=== PATIENT | female | born 1960 | race African-American/Black ===

== ENCOUNTER → 2017-01-24 | Day surgery (SDC) | payer BC ==
[2017-01-24 11:26] LABS: ALBUMIN 3.9 g/dl (3.4-5.0); ANION GAP 4 (8-16); BILIRUBIN,TOTAL 0.4 mg/dL (0.2-1.0); CALCIUM 9.4 mg/dL (8.5-10.1); CHOLESTEROL 204 mg/dL (50-200); CO2 31 mmol/L (21-32); CREATININE 0.8 mg/dL (0.55-1.02); GLUCOSE,RANDOM 91 mg/dL (74-106); LDL CHOLESTEROL (ONLY SJRH) 124 mg/dL (5-100); SGOT/AST 14 U/L (15-37); SGPT/ALT 26 U/L (12-78); TOT PROT 7.5 g/dl (6.4-8.2)
[2017-01-24 11:37] LABS: ALK PHOS 61 U/L (45-117); THYROID STIMULATING HORMONE 1.55 uIU/ml (0.358-3.74)
--- NOTE | 2017-01-25 12:26 | PATH ---
Cytology Non-Gynecological Report Patient Name: DAILY STANTON [facility]. Rec. #: [id number] /Age/Gender: 1960 (Age: 56) / F Account: [id number] Location: RADIOLOGY Taken: 01/24/2017 Received: 01/24/2017 Reported: 01/25/2017 Physicians: Vince Sanchez M.D. Specimen(s) Received FNA RIGHT THYROID Clinical History Right thyroid 4.79 x 2.81 x 3.24 Final Diagnosis THYROID, RIGHT, FINE NEEDLE ASPIRATION: SATISFACTORY FOR EVALUATION B[place] CATEGORY II: BENIGN (NO MALIGNANT CELLS IDENTIFIED) CYTOLOGIC FINDINGS ARE CONSISTENT WITH A BENIGN FOLLICULAR NODULE (ADENOMATOID NODULE) BENIGN FOLLICULAR CELLS, MACROPHAGES AND COLLOID PRESENT. Comment: Recommend correlation with clinical findings and follow up as clinically indicated. Electronically Signed Moreno Bonds M.D. Gross Description Received are eight direct smears, four of which are air-dried and Diff-Quik stained, and four of which are alcohol fixed and Pap stained. Also received is 20 ml of bloody formalin from which one cellblock is prepared.
[2017-01-26 00:07] LABS: CREATININE RANDOM URINE 396.7 mg/dL (Not Estab.); MICRO ALBUMIN RANDOM UR 14.8 ug/mL (Not Estab.)
== END | disposition home or self-care (01) ==
LOC: JRADIR 09:31
PROVIDERS: ATTEND Internal Medicine Endocrinology, Diabetes & Metabolism
PROC: 0G9H3ZX Drainage of Right Thyroid Gland Lobe, Percutaneous Approach, Diagnostic (ICD-10-PCS; principal; 2017-01-24)
PROC: BG44ZZZ Ultrasonography of Thyroid Gland (ICD-10-PCS; 2017-01-24)
DX: E04.1 Nontoxic single thyroid nodule (principal)
CPT/HCPCS: 36415; 76942; 80053; 80061; 82043; 82570; 83036; 83721; 84443; 88173; 88305-TC

== ENCOUNTER 2017-04-25 17:34 | Emergency (ER) | payer BC, OTHER ==
[2017-04-25 17:41] VITALS: BP 128/65; PULSE 100; TEMP 98.1; BMI 31.9
[2017-04-25] MEDS ORDERED: IBUPROFEN 400 MG TABLET (FP) PO ONE ×2 (18:15→18:17)
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
== END 2017-04-25 18:35 | disposition home or self-care (01) ==
LOC: JERFT 17:34
DX: M79.602 Pain in left arm (principal); I10 Essential (primary) hypertension; K21.9 Gastro-esophageal reflux disease without esophagitis; V03.10XA Pedestrian on foot injured in collision with car, pick-up truck or van in traffic accident, initial encounter; Y92.414 Local residential or business street as the place of occurrence of the external cause; Y93.89 Activity, other specified
CPT/HCPCS: 99281-25

== ENCOUNTER 2017-09-27 09:37 | Day surgery (SDC) | payer BC ==
[2017-09-27 10:36] VITALS: BMI 31.9
[2017-09-27 12:25] VITALS: TEMP 97.4
[2017-09-27 12:46] VITALS: BP 143/96; PULSE 66
--- NOTE | 2017-10-01 16:40 | PATH ---
Surgical Pathology Report Patient Name: DAILY STANTON [facility]. Rec. #: [id number] /Age/Gender: 1960 (Age: 57) / F Account: [id number] Location: ASU-ENDOSCOPY Taken: 09/27/2017 Received: 09/27/2017 Reported: 10/01/2017 Physicians: Gabriela Angulo M.D. Specimen(s) Received A: BX POLYPS TRANSVERSE COLON B: BX POLYPS RIGHT COLON Clinical History History of colon polyp Diverticulosis, polyps Final Diagnosis A. TRANSVERSE COLON, POLYP, BIOPSY: TUBULAR ADENOMA(S). B. COLON, RIGHT, POLYPS, BIOPSY: TUBULAR ADENOMA(S). Electronically Signed Raquel Dawkins M.D. Gross Description A. Received in formalin, labeled "transverse colon polyp" are 6 gonzalez, irregular portions of soft tissue ranging from 0.2-0.4 cm. in greatest dimension. The specimens are submitted in toto in one cassette. B. Received in formalin, labeled "polyps right colon" are 6 gonzalez, irregular portions of soft tissue ranging from 0.1-0.5 cm. in greatest dimension. The specimens are submitted in toto in one cassette. 09/27/201709/27/2017
== END 2017-09-27 13:50 | disposition home or self-care (01) ==
LOC: JASU-ENDO 09:37
PROVIDERS: ATTEND Internal Medicine Gastroenterology
PROC: 0DBL8ZX Excision of Transverse Colon, Via Natural or Artificial Opening Endoscopic, Diagnostic (ICD-10-PCS; 2017-09-27)
PROC: 0DBN8ZX Excision of Sigmoid Colon, Via Natural or Artificial Opening Endoscopic, Diagnostic (ICD-10-PCS; 2017-09-27)
PROC: 0DBK8ZX Excision of Ascending Colon, Via Natural or Artificial Opening Endoscopic, Diagnostic (ICD-10-PCS; principal; 2017-09-27 10:30)
DX: Z86.010 Personal history of colon polyps (principal); D12.2 Benign neoplasm of ascending colon; D12.5 Benign neoplasm of sigmoid colon; D12.3 Benign neoplasm of transverse colon; K57.30 Diverticulosis of large intestine without perforation or abscess without bleeding
CPT/HCPCS: 88305-TC

== ENCOUNTER 2018-07-16 16:19 | Emergency (ER) | payer OTHER, BC ==
--- NOTE | 2018-07-16 16:25 | PDOC ---
Rapid Medical Evaluation Time Seen by Provider: 07/16/18 16:23 Medical Evaluation: Allergies Allergy/AdvReac Type Severity Reaction Status Date / Time ofloxacin [From Floxin] Allergy Severe TACHYCARDIA,CHEST Verified 04/25/17 17:41 PAIN epinephrine Allergy Unknown Verified 04/25/17 17:41 [From Epi E-Z Pen] iodine Allergy Verified 04/25/17 17:41 Quinolones Allergy Verified 04/25/17 17:41 GREEN TEA FLORES Allergy Severe Difficulty Uncoded 04/25/17 17:41 Breathing MOBIC Allergy Severe Difficulty Uncoded 04/25/17 17:41 Breathing NUTS Allergy Severe STOMACH Uncoded 04/25/17 17:41 CRAMPS,VOICE CHANGES cherries Allergy Intermediate Uncoded 04/25/17 17:41 DYE Allergy Intermediate PALPITATION Uncoded 04/25/17 17:41 S SEVERAL FOODS Allergy Intermediate Rash Uncoded 04/25/17 17:41 ARUGALA Allergy Mild Rash Uncoded 04/25/17 17:41 07/16/18 16:23 pt c/o: walked into a desk at work today, now with pain pt on brief exam: rt 5th toe with tenderness, pt ordered for: rt toe xray Pt to proceed to the ED Discharge Disposition - Diagnosis Toe pain, right - Referrals - Patient Instructions - Post Discharge Activity
[2018-07-16 16:27] VITALS: BP 162/102; PULSE 82; TEMP 97; BMI 31.7
--- NOTE | 2018-07-16 16:47 | PDOC ---
History of Present Illness - General Chief Complaint: Injury Stated Complaint: RT FOOT INJURY Time Seen by Provider: 07/16/18 16:23 - History of Present Illness Initial Comments: 58-year-old female with a past medical history significant for hypertension presents for evaluation of right fifth toe pain after banging it into a desk at work today. 07/16/18 16:44 Past History - Past Medical History Allergies/Adverse Reactions: Allergies Allergy/AdvReac Type Severity Reaction Status Date / Time ofloxacin [From Floxin] Allergy Severe TACHYCARDIA,CHEST Verified 07/16/18 16:27 PAIN epinephrine Allergy Unknown Verified 07/16/18 16:27 [From Epi E-Z Pen] iodine Allergy Verified 07/16/18 16:27 Quinolones Allergy Verified 07/16/18 16:27 GREEN TEA FLORES Allergy Severe Difficulty Uncoded 07/16/18 16:27 Breathing MOBIC Allergy Severe Difficulty Uncoded 07/16/18 16:27 Breathing NUTS Allergy Severe STOMACH Uncoded 07/16/18 16:27 CRAMPS,VOICE CHANGES cherries Allergy Intermediate Uncoded 07/16/18 16:27 DYE Allergy Intermediate PALPITATION Uncoded 07/16/18 16:27 S SEVERAL FOODS Allergy Intermediate Rash Uncoded 07/16/18 16:27 ARUGALA Allergy Mild Rash Uncoded 07/16/18 16:27 Home Medications: Ambulatory Orders Losartan Potassium 100 mg PO DAILY 07/16/18 Anemia: No Asthma: No Cancer: No Cardiac Disorders: Yes (MVP) CVA: No COPD: No CHF: No Dementia: No Diabetes: No GI Disorders: Yes (ACID REFLUX) Disorders: No HTN: Yes Hypercholesterolemia: No Liver Disease: No Seizures: No Thyroid Disease: Yes (THYROID GOITER) - Surgical History Abdominal Surgery: Yes (EXPLORATORY LAP) Appendectomy: No Cardiac Surgery: No Cholecystectomy: Yes Lung Surgery: No Neurologic Surgery: No Orthopedic Surgery: Yes (RIGHT KNEE ARTHROSCOPY) - Suicide/Smoking/Psychosocial Hx Smoking Status: No Smoking History: Never smoked Have you smoked in the past 12 months: No Number of Cigarettes Smoked Daily: 0 Hx Alcohol Use: No Drug/Substance Use Hx: No Substance Use Type: None Hx Substance Use Treatment: No Review of Systems - Review of Systems Musculoskeletal: Yes: See HPI All Other Systems: Reviewed and Negative *Physical Exam - Vital Signs Last Vital Signs Temp Pulse Resp BP Pulse Ox 97 F L 82 18 162/102 100 07/16/18 16:21 07/16/18 16:21 07/16/18 16:21 07/16/18 16:21 07/16/18 16:21 - Physical Exam Comments: Right fifth toe is swollen mildly ecchymotic tender at the MTP joint and fifth proximal phalanx. There is no appreciable malrotation with gentle passive motion or gross sensorimotor deficits 07/16/18 16:45 Medical Decision Making - Medical Decision Making Is a minimally displaced fracture at the fifth proximal phalanx of the right foot. 07/16/18 16:42 07/16/18 16:45 , Nimisha tape follow-up with orthopedics weight-bear as tolerated with use of a hard sole shoe *DC/Admit/Observation/Transfer Diagnosis at time of Disposition: Toe pain, right, Toe fracture, right - Discharge Dispostion Disposition: HOME Condition at time of disposition: Stable Decision to Admit order: No - Referrals Referrals: Ramon Nicolas MD [Primary Care Provider] - Roverto Rucker MD [Staff Physician] - - Patient Instructions Printed Discharge Instructions: Toe Fracture, DI for Toe Fracture Additional Instructions: Return to the emergency room should his symptoms worsen or go unresolved. Please follow-up with orthopedics in 2-3 days for further evaluation and treatment options. He may weight-bear as tolerated with use of a hard sole shoe and keep the toe nimisha taped for extra support. May take Tylenol for pain as directed. - Post Discharge Activity
== END 2018-07-16 16:47 | disposition home or self-care (01) ==
LOC: JERFT 16:19
DX: S92.511A Displaced fracture of proximal phalanx of right lesser toe(s), initial encounter for closed fracture (principal); W22.03XA Walked into furniture, initial encounter; Y93.89 Activity, other specified; Y92.215 Trade school as the place of occurrence of the external cause; Y99.0 Civilian activity done for income or pay; I10 Essential (primary) hypertension; K21.9 Gastro-esophageal reflux disease without esophagitis
CPT/HCPCS: 73660-TC-FY; 99281-25

== ENCOUNTER 2021-07-18 10:41 | Inpatient (IN) | payer BC ==
[2021-07-18 12:41] LABS: HEMATOCRIT 39.8 % (32.4-45.2); HEMOGLOBIN 13.7 GM/dL (10.7-15.3); MCH 29.7 pg (25.7-33.7); MCHC 34.5 g/dl (32.0-36.0); MEAN CELL VOLUME 86.2 fl (80-96); MEAN PLT VOLUME 8.3 fl (7.5-11.1); PLATELET COUNT 359 10^3/uL (134-434); RBC 4.62 M/mm3 (3.60-5.2); RDW 13.4 % (11.6-15.6); WHITE BLOOD COUNT 25.6 K/mm3 (4.0-10.0)
[2021-07-18] MEDS ORDERED: ENOXAPARIN NA (PORCINE) 60 MG/0.6 ML DISP.SYRIN SQ SCH (12:45)
[2021-07-18 12:48] LABS: INR 1.29 (0.83-1.09); PROTHROMBIN TIME (PATIENT) 15.5 SEC (9.7-13.0)
[2021-07-18 12:50] LABS: ACTIVATED PTT 37.2 SECONDS (25.2-36.5)
[2021-07-18] MEDS ORDERED: ENOXAPARIN NA (PORCINE) 80 MG/0.8 ML DISP.SYRIN SQ ONE (12:59)
[2021-07-18 13:04] LABS: CHLORIDE 100 mmol/L (98-107); SODIUM 137 mmol/L (136-145)
[2021-07-18 13:06] LABS: ALBUMIN 3.1 g/dl (3.4-5.0); CALCIUM 9.1 mg/dL (8.5-10.1)
[2021-07-18 13:07] LABS: ANION GAP 13 MMOL/L (8-16); BLOOD UREA NITROGEN 28.3 mg/dL (7-18); CO2 24 mmol/L (21-32); GLUCOSE,RANDOM 118 mg/dL (74-106)
[2021-07-18 13:10] LABS: CREATININE 2.4 mg/dL (0.55-1.3); SGOT/AST 59 U/L (15-37); SGPT/ALT 65 U/L (13-61)
[2021-07-18 13:11] LABS: BILIRUBIN,TOTAL 0.9 mg/dL (0.2-1); TOT PROT 8.8 g/dl (6.4-8.2)
[2021-07-18 13:13] LABS: ALK PHOS 91 U/L (45-117); ANISOCYTOSIS 2+; MACROCYTOSIS 0; PLATELET ESTIMATE NORMAL
[2021-07-18] MEDS ORDERED: CEFTRIAXONE 1 GM in DEXTROSE 5%-WATER - 50 ML IVPB ONE (14:26)
[2021-07-18] MEDS ORDERED: VANCOMYCIN 1 GM in D5W (PRE-DOCKED) 1,000 MG/250 ML IVPB ONE (15:00)
[2021-07-18] MEDS ORDERED: SODIUM CHLORIDE 1,000 ML IV SCH (15:15)
[2021-07-18] MEDS ORDERED: MELATONIN 5 MG TABLETS PO PRN (15:54)
[2021-07-18] MEDS ORDERED: CEFTRIAXONE 1 GM/50 ML BAG ONE (16:25)
[2021-07-18] MEDS ORDERED: VANCOMYCIN 1 GRAM (PRE-DOCKED) 1,000 MG/250 ML BAG IVPB ONE (16:25)
[2021-07-18] MEDS: HEPARIN - 25,000 UNIT in SODIUM CHLORIDE 495 ML IV SCH (17:45)
[2021-07-18 20:26] LABS: LDH 491 U/L (84-246)
[2021-07-18 23:50] VITALS: BMI 29.0
[2021-07-19 07:11] LABS: BASO % 0.5 % (0-2.0); EOS % 0.3 % (0-4.5); HEMATOCRIT 34.2 % (32.4-45.2); HEMOGLOBIN 11.9 GM/dL (10.7-15.3); MCH 29.8 pg (25.7-33.7); MCHC 34.7 g/dl (32.0-36.0); MEAN CELL VOLUME 85.8 fl (80-96); MEAN PLT VOLUME 8.6 fl (7.5-11.1); MONO % 7.6 % (3.8-10.2); NEUT % 81.6 % (42.8-82.8); PLATELET COUNT 348 10^3/uL (134-434); RBC 3.98 M/mm3 (3.60-5.2); RDW 13.5 % (11.6-15.6); WHITE BLOOD COUNT 20.1 K/mm3 (4.0-10.0)
[2021-07-19 07:39] LABS: BLOOD UREA NITROGEN 36.6 mg/dL (7-18); CALCIUM 8.6 mg/dL (8.5-10.1); MAGNESIUM 2.2 mg/dL (1.8-2.4)
[2021-07-19 07:42] LABS: PHOSPHOROUS 4.2 mg/dL (2.5-4.9)
[2021-07-19 07:43] LABS: BILIRUBIN,TOTAL 0.6 mg/dL (0.2-1); CREATININE 1.9 mg/dL (0.55-1.3)
[2021-07-19 07:45] LABS: TOT PROT 7.4 g/dl (6.4-8.2)
[2021-07-19 08:46] LABS: ALBUMIN 2.5 g/dl (3.4-5.0)
[2021-07-19 09:14] LABS: ANISOCYTOSIS 0; MACROCYTOSIS 0; PLATELET ESTIMATE NORMAL
[2021-07-19 11:39] LABS: EPI CELLS >36 /uL (0-25.1); HYALINE CASTS 10 /uL (0-3.1); URINE APPEARANCE TURBID; URINE BACTERIA 104 /uL (0-1359); URINE BILIRUBIN NEGATIVE (NEGATIVE); URINE COLOR YELLOW; URINE GLUCOSE (UA) NEGATIVE (NEGATIVE); URINE KETONE TRACE (NEGATIVE); URINE LEUK ESTERASE NEGATIVE (NEGATIVE); URINE NITRITE NEGATIVE (NEGATIVE); URINE PROTEIN 1+ (NEGATIVE)
[2021-07-19 11:40] LABS: URINE RBC 19.1 /uL (0-23.9)
[2021-07-19 11:41] LABS: URINE WBC 82.8 /uL (0-25.8)
[2021-07-19] MEDS ORDERED: LACTATED RINGERS SOLUTION 1,000 ML/1,000 ML INFUS.BAG IV SCH (12:30)
[2021-07-19] MEDS: DEXAMETHASONE SOD PHOSPHATE 4 MG/1 ML VIAL IVPUSH SCH (14:07)
[2021-07-19] MEDS: HEPARIN - 25,000 UNIT in SODIUM CHLORIDE 495 ML IV SCH (14:54)
[2021-07-19] MEDS: BUDESONIDE/FORMETEROL FUMARATE 160/4.5 mcg INHALER IH SCH ×2 (18:02→21:50)
[2021-07-19] MEDS ORDERED: FAMOTIDINE 20 MG TABLET PO SCH (22:00)
[2021-07-20 07:45] LABS: BASO % 0.3 % (0-2.0); HEMATOCRIT 33.3 % (32.4-45.2); HEMOGLOBIN 11.2 GM/dL (10.7-15.3); LYMPH % 4.9 % (8-40); MCH 29.5 pg (25.7-33.7); MCHC 33.7 g/dl (32.0-36.0); MEAN CELL VOLUME 87.6 fl (80-96); MEAN PLT VOLUME 7.8 fl (7.5-11.1); MONO % 4.9 % (3.8-10.2); NEUT % 89.9 % (42.8-82.8); PLATELET COUNT 380 10^3/uL (134-434); RBC 3.81 M/mm3 (3.60-5.2); RDW 13.2 % (11.6-15.6)
[2021-07-20 08:06] LABS: ALBUMIN 2.6 g/dl (3.4-5.0); CALCIUM 8.9 mg/dL (8.5-10.1)
[2021-07-20 08:07] LABS: BLOOD UREA NITROGEN 23.8 mg/dL (7-18); MAGNESIUM 2.5 mg/dL (1.8-2.4)
[2021-07-20 08:09] LABS: CREATININE 0.9 mg/dL (0.55-1.3)
[2021-07-20 08:10] LABS: BILIRUBIN,TOTAL 0.6 mg/dL (0.2-1); TOT PROT 7.5 g/dl (6.4-8.2)
[2021-07-20] MEDS: FAMOTIDINE 20 MG TABLET PO SCH (09:22)
[2021-07-20] MEDS: DEXAMETHASONE SOD PHOSPHATE 4 MG/1 ML VIAL IVPUSH SCH (09:22)
[2021-07-20] MEDS: BUDESONIDE/FORMETEROL FUMARATE 160/4.5 mcg INHALER IH SCH ×2 (09:36→21:53)
[2021-07-20] MEDS: APIXABAN 2.5 MG TABLET PO SCH ×2 (12:27→21:53)
[2021-07-21 07:13] LABS: HEMATOCRIT 30.8 % (32.4-45.2); HEMOGLOBIN 10.3 GM/dL (10.7-15.3); MCH 28.7 pg (25.7-33.7); MCHC 33.5 g/dl (32.0-36.0); MEAN CELL VOLUME 85.5 fl (80-96); MEAN PLT VOLUME 7.9 fl (7.5-11.1); PLATELET COUNT 348 10^3/uL (134-434); RDW 13.3 % (11.6-15.6); WHITE BLOOD COUNT 19.9 K/mm3 (4.0-10.0)
[2021-07-21 07:21] LABS: CHLORIDE 108 mmol/L (98-107); SODIUM 140 mmol/L (136-145)
[2021-07-21 07:24] LABS: ALBUMIN 2.4 g/dl (3.4-5.0); CALCIUM 8.7 mg/dL (8.5-10.1)
[2021-07-21 07:25] LABS: ANION GAP 6 MMOL/L (8-16); BLOOD UREA NITROGEN 18.6 mg/dL (7-18); CO2 26 mmol/L (21-32); GLUCOSE,RANDOM 113 mg/dL (74-106); MAGNESIUM 2.1 mg/dL (1.8-2.4)
[2021-07-21 07:27] LABS: SGPT/ALT 42 U/L (13-61)
[2021-07-21 07:28] LABS: CREATININE 0.7 mg/dL (0.55-1.3); SGOT/AST 29 U/L (15-37)
[2021-07-21 07:29] LABS: BILIRUBIN,TOTAL 0.6 mg/dL (0.2-1)
[2021-07-21 07:30] LABS: ALK PHOS 67 U/L (45-117)
[2021-07-21 07:32] LABS: LDH 369 U/L (84-246)
[2021-07-21] MEDS ORDERED: PT OWN MED DRAWER 7, Y5N ONE (09:35)
[2021-07-21 09:39] LABS: ANISOCYTOSIS 1+; MACROCYTOSIS 0; PLATELET ESTIMATE NORMAL
[2021-07-21] MEDS: APIXABAN 2.5 MG TABLET PO SCH ×2 (10:13→22:27)
[2021-07-21] MEDS: DEXAMETHASONE SOD PHOSPHATE 4 MG/1 ML VIAL IVPUSH SCH (10:13)
[2021-07-21] MEDS: FAMOTIDINE 20 MG TABLET PO SCH (10:14)
[2021-07-21] MEDS: BUDESONIDE/FORMETEROL FUMARATE 160/4.5 mcg INHALER IH SCH ×2 (10:14→22:27)
[2021-07-21] MEDS ORDERED: LOSARTAN POTASSIUM 50 MG TABLET PO ONE (15:00)
[2021-07-21] MEDS ORDERED: NEBIVOLOL 5 MG TABLET (FP) PO ONE (15:15)
[2021-07-22 08:01] LABS: HEMATOCRIT 32.1 % (32.4-45.2); HEMOGLOBIN 10.9 GM/dL (10.7-15.3); MCH 29.5 pg (25.7-33.7); MCHC 33.8 g/dl (32.0-36.0); MEAN CELL VOLUME 87.1 fl (80-96); MEAN PLT VOLUME 8.1 fl (7.5-11.1); PLATELET COUNT 393 10^3/uL (134-434); RBC 3.69 M/mm3 (3.60-5.2); RDW 13.4 % (11.6-15.6); WHITE BLOOD COUNT 16.8 K/mm3 (4.0-10.0)
[2021-07-22 08:12] LABS: CALCIUM 8.9 mg/dL (8.5-10.1)
[2021-07-22 08:13] LABS: ALBUMIN 2.5 g/dl (3.4-5.0); BLOOD UREA NITROGEN 18.5 mg/dL (7-18); MAGNESIUM 1.8 mg/dL (1.8-2.4)
[2021-07-22 08:16] LABS: CREATININE 0.8 mg/dL (0.55-1.3)
[2021-07-22 08:17] LABS: BILIRUBIN,TOTAL 0.4 mg/dL (0.2-1)
[2021-07-22 08:18] LABS: TOT PROT 7.1 g/dl (6.4-8.2)
[2021-07-22] MEDS ORDERED: MAGNESIUM OXIDE 400 MG TABLET (FP) PO ONE (08:48)
[2021-07-22 08:51] LABS: ANISOCYTOSIS 1+; MACROCYTOSIS 0; PLATELET ESTIMATE NORMAL
[2021-07-22] MEDS ORDERED: NEBIVOLOL 5 MG TABLET (FP) PO SCH (10:00)
[2021-07-22] MEDS: FAMOTIDINE 20 MG TABLET PO SCH (11:20)
[2021-07-22] MEDS: LOSARTAN POTASSIUM 50 MG TABLET PO SCH (11:20)
[2021-07-22] MEDS: NEBIVOLOL 5 MG TABLET (FP) PO SCH (11:20)
[2021-07-22] MEDS: APIXABAN 2.5 MG TABLET PO SCH ×2 (11:21→21:00)
[2021-07-22] MEDS: DEXAMETHASONE SOD PHOSPHATE 4 MG/1 ML VIAL IVPUSH SCH (11:21)
[2021-07-22] MEDS: BUDESONIDE/FORMETEROL FUMARATE 160/4.5 mcg INHALER IH SCH ×2 (11:21→21:00)
[2021-07-23 07:43] LABS: BASO % 0.2 % (0-2.0); EOS % 0.1 % (0-4.5); HEMATOCRIT 30.8 % (32.4-45.2); HEMOGLOBIN 10.5 GM/dL (10.7-15.3); LYMPH % 8.6 % (8-40); MCH 29.7 pg (25.7-33.7); MCHC 34.2 g/dl (32.0-36.0); MEAN CELL VOLUME 86.9 fl (80-96); MEAN PLT VOLUME 8.1 fl (7.5-11.1); MONO % 9.1 % (3.8-10.2); PLATELET COUNT 358 10^3/uL (134-434); RBC 3.55 M/mm3 (3.60-5.2); RDW 13.5 % (11.6-15.6); WHITE BLOOD COUNT 16.1 K/mm3 (4.0-10.0)
[2021-07-23 07:53] LABS: ALBUMIN 2.4 g/dl (3.4-5.0); BLOOD UREA NITROGEN 19.6 mg/dL (7-18); CALCIUM 8.8 mg/dL (8.5-10.1)
[2021-07-23 07:54] LABS: MAGNESIUM 2.1 mg/dL (1.8-2.4)
[2021-07-23 07:55] LABS: TOT PROT 6.6 g/dl (6.4-8.2)
[2021-07-23 07:56] LABS: CREATININE 0.7 mg/dL (0.55-1.3)
[2021-07-23] MEDS: DEXAMETHASONE SOD PHOSPHATE 4 MG/1 ML VIAL IVPUSH SCH (09:48)
[2021-07-23] MEDS: APIXABAN 2.5 MG TABLET PO SCH ×2 (09:49→21:48)
[2021-07-23] MEDS: LOSARTAN POTASSIUM 50 MG TABLET PO SCH (09:49)
[2021-07-23] MEDS: FAMOTIDINE 20 MG TABLET PO SCH (09:49)
[2021-07-23] MEDS: NEBIVOLOL 5 MG TABLET (FP) PO SCH (09:49)
[2021-07-23] MEDS: BUDESONIDE/FORMETEROL FUMARATE 160/4.5 mcg INHALER IH SCH ×2 (09:49→21:48)
[2021-07-24 08:24] LABS: HEMATOCRIT 31.2 % (32.4-45.2); HEMOGLOBIN 10.6 GM/dL (10.7-15.3); MCH 29.3 pg (25.7-33.7); MEAN PLT VOLUME 7.8 fl (7.5-11.1); PLATELET COUNT 352 10^3/uL (134-434); RBC 3.62 M/mm3 (3.60-5.2); RDW 13.5 % (11.6-15.6); WHITE BLOOD COUNT 17.4 K/mm3 (4.0-10.0)
[2021-07-24 08:37] LABS: ALBUMIN 2.4 g/dl (3.4-5.0); BLOOD UREA NITROGEN 19.6 mg/dL (7-18); CALCIUM 8.7 mg/dL (8.5-10.1)
[2021-07-24 08:40] LABS: CREATININE 0.7 mg/dL (0.55-1.3)
[2021-07-24 08:42] LABS: TOT PROT 6.5 g/dl (6.4-8.2)
[2021-07-24 08:44] LABS: BILIRUBIN,TOTAL 0.6 mg/dL (0.2-1)
[2021-07-24 09:18] VITALS: TEMP 98.8
[2021-07-24] MEDS: LOSARTAN POTASSIUM 50 MG TABLET PO SCH (09:19)
[2021-07-24] MEDS: APIXABAN 2.5 MG TABLET PO SCH (09:19)
[2021-07-24] MEDS: BUDESONIDE/FORMETEROL FUMARATE 160/4.5 mcg INHALER IH SCH (09:19)
[2021-07-24] MEDS: NEBIVOLOL 5 MG TABLET (FP) PO SCH (09:19)
[2021-07-24] MEDS: FAMOTIDINE 20 MG TABLET PO SCH (09:19)
[2021-07-24] MEDS ORDERED: DEXAMETHASONE 4 MG TABLET (FP) PO SCH (10:00)
[2021-07-24 10:15] LABS: ANISOCYTOSIS 1+; MACROCYTOSIS 0; PLATELET ESTIMATE NORMAL; TEAR DROP CELLS 1+
[2021-07-24 14:03] VITALS: BP 134/93
[2021-07-24 14:26] VITALS: PULSE 82
[2021-07-27] MEDS ORDERED: APIXABAN 2.5 MG TABLET PO SCH (10:00)
[2021-07-30] MEDS ORDERED: APIXABAN 5 MG TABLET PO SCH (10:00)
== END 2021-07-24 17:17 | disposition home health service (06) | DRG 300 ==
LOC: JER 10:41 → JERBED 12:13 → J4S 22:42
PROVIDERS: ADMIT Internal Medicine; ATTEND Nurse Practitioner Acute Care
DX: I82.4Z1 Acute embolism and thrombosis of unspecified deep veins of right distal lower extremity (principal); N17.9 Acute kidney failure, unspecified; R74.01 Elevation of levels of liver transaminase levels; D72.829 Elevated white blood cell count, unspecified; R00.0 Tachycardia, unspecified; R09.02 Hypoxemia; I10 Essential (primary) hypertension; K21.9 Gastro-esophageal reflux disease without esophagitis; E04.1 Nontoxic single thyroid nodule
CPT/HCPCS: 36415; 71046-TC-FY; 71250-TC; 73523-TC-FY; 73562-TC-RT-FY; 73610-TC-RT-FY; 76775-TC; 80053; 80061; 81003; 82550; 82728; 83036; 83615; 83735; 84100; 84484; 85025; 85379; 85610; 85730; 86140; 86769; 87040; 87086; 93005; 93010; 93971-TC; 94761; 97116-GP; 97163-GP; 99285-25; C9803; J1644; U0003; U0005

== ENCOUNTER 2021-09-08 16:18 | Emergency (ER) | payer BC, OTHER ==
[2021-09-08 16:36] VITALS: BP 169/100; PULSE 67; TEMP 97.8; BMI 30.9
[2021-09-08] MEDS ORDERED: APIXABAN 2.5 MG TABLET PO ONE (17:32)
== END 2021-09-08 18:16 | disposition home or self-care (01) ==
LOC: JERFT 16:18
DX: I82.491 Acute embolism and thrombosis of other specified deep vein of right lower extremity (principal)
CPT/HCPCS: 99283-25

== ENCOUNTER 2022-10-31 04:15 | Day surgery (SDC) | payer BC ==
[2022-10-29 14:32] VITALS: BMI 32.1
[~2022-10-31 04:15] MED LIST: ACETAMINOPHEN 325 MG TABLET (FP) PO PRN; BSS (NA/CA/MG/K) BALANCED SALT SOLUTION OPHTH SOLN 15 ML BOTTLE OD ONE; CHONDROITIN SU A/HYALUR SOD 1 KIT IO ONE; EPINEPHrine/PF 1 MG/1 ML (1:1,000) AMPULE SQ ONE; LIDOCAINE 1% P/F 10 MG/ML VIAL PNB ONE; POVIDONE-IODINE 5% OPHTHALMIC PREP 30 ML SOLUTION OD ONE; TETRACAINE 0.5% OPHTH SOLN 2 ML BOTTLE OD ONE; TRYPAN BLUE 0.5 ML DISP.SYRIN IO ONE
[2022-10-31] MEDS ORDERED: KETOROLAC TROMETHAMINE 0.5% EYE DROP 1 DROP DROPS ONE (06:15)
[2022-10-31] MEDS ORDERED: CYCLOPENTOLATE HCL 1% OPHTH SOLN 2 ML BOTTLE ONE (06:15)
[2022-10-31] MEDS ORDERED: PHENYLEPHRINE 2.5% OPTHALMIC DROP 2ML BOTTLE ONE (06:15)
[2022-10-31] MEDS ORDERED: TROPICAMIDE 1% OPHTH SOLN 15 ML BOTTLE ONE (06:15)
[2022-10-31] MEDS: CYCLOPENTOLATE HCL 1% OPHTH SOLN 2 ML BOTTLE OP SCH ×3 (06:30→06:45)
[2022-10-31] MEDS: PHENYLEPHRINE 2.5% OPHTH SOLN 15 ML BOTTLE OP SCH ×3 (06:30→06:45)
[2022-10-31] MEDS: POLYMYXIN B SULFATE/TMP 10 ML OPHTHALMIC SOLUTION OD SCH ×3 (06:30→06:45)
[2022-10-31] MEDS: KETOROLAC TROMETHAMINE 0.5% EYE DROP 1 DROP DROPS OP SCH ×3 (06:30→06:45)
[2022-10-31] MEDS: TROPICAMIDE 1% OPHTH SOLN 15 ML BOTTLE OP SCH ×3 (06:30→06:45)
[2022-10-31 06:32] VITALS: RESP 18
[2022-10-31] MEDS ORDERED: VANCOMYCIN 500 MG VIAL (RESTRICTED TO ID ONLY) ONE (07:14)
[2022-10-31] MEDS ORDERED: BUPIVACAINE HCL/PF 0.75% 10 ML VIAL ONE (07:14)
[2022-10-31] MEDS ORDERED: LIDOCAINE HCL/PF 2% SDV 5ML VIAL ONE (07:14)
[2022-10-31] MEDS ORDERED: LIDOCAINE HCL/PF 1% SDV 5ML VIAL ONE (07:14)
[2022-10-31] MEDS ORDERED: EPINEPHrine/PF 1 MG/1 ML (1:1,000) AMPULE ONE (07:15)
[2022-10-31] MEDS ORDERED: TRYPAN BLUE 0.5 ML DISP.SYRIN ONE (07:15)
[2022-10-31] MEDS ORDERED: TETRACAINE 0.5% OPHTH SOLN 2 ML BOTTLE ONE (07:15)
[2022-10-31] MEDS ORDERED: POVIDONE-IODINE 5% OPHTHALMIC PREP 30 ML SOLUTION ONE (07:15)
[2022-10-31] MEDS ORDERED: MIDAZOLAM HCL 2 MG/2 ML SINGLE DOSE VIAL ONE (08:01)
[2022-10-31] MEDS ORDERED: TETRACAINE 0.5% OPHTH SOLN 2 ML BOTTLE OD ONE (08:17)
[2022-10-31] MEDS ORDERED: POVIDONE-IODINE 5% OPHTHALMIC PREP 30 ML SOLUTION OD ONE (08:19)
[2022-10-31] MEDS ORDERED: BSS (NA/CA/MG/K) BALANCED SALT SOLUTION OPHTH SOLN 15 ML BOTTLE OD ONE (08:26)
[2022-10-31] MEDS ORDERED: LIDOCAINE 1% P/F 10 MG/ML VIAL PNB ONE (08:27)
[2022-10-31] MEDS ORDERED: TRYPAN BLUE 0.5 ML DISP.SYRIN IO ONE (08:28)
[2022-10-31] MEDS ORDERED: CHONDROITIN SU A/HYALUR SOD 1 KIT IO ONE (08:29)
[2022-10-31] MEDS ORDERED: EPINEPHrine/PF 1 MG/1 ML (1:1,000) AMPULE SQ ONE (08:33)
[2022-10-31 09:05] VITALS: PULSE 60
[2022-10-31 09:28] VITALS: BP 116/71; TEMP 97.8
== END 2022-10-31 09:37 | disposition home or self-care (01) ==
LOC: JASU-SURG 04:15
PROVIDERS: ATTEND Ophthalmology
PROC: 08RJ3JZ Replacement of Right Lens with Synthetic Substitute, Percutaneous Approach (ICD-10-PCS; principal; 2022-10-31 08:00)
DX: H25.89 Other age-related cataract (principal)
CPT/HCPCS: 66984; V2632

== ENCOUNTER → 2023-01-23 | Day surgery (SDC) | payer BC, OTHER | END | disposition home or self-care (01) | LOC: JRADIR 09:56 | PROVIDERS: ATTEND Internal Medicine Endocrinology, Diabetes & Metabolism | PROC: 0G9H3ZX Drainage of Right Thyroid Gland Lobe, Percutaneous Approach, Diagnostic (ICD-10-PCS; principal; 2023-01-23) | DX: E04.1 Nontoxic single thyroid nodule (principal) | CPT/HCPCS: 10005; 76942; 88173; 88305-TC ==

== ENCOUNTER 2023-04-18 04:01 | Day surgery (SDC) | payer OTHER, BC ==
[2023-04-16 15:59] VITALS: BMI 32.1
[2023-04-18 08:58] VITALS: TEMP 98
[2023-04-18 09:15] VITALS: BP 125/67; PULSE 54; RESP 16
== END 2023-04-18 09:26 | disposition home or self-care (01) ==
LOC: JASU-ENDO 04:01
PROVIDERS: ATTEND Internal Medicine Gastroenterology
PROC: 0DBL8ZX Excision of Transverse Colon, Via Natural or Artificial Opening Endoscopic, Diagnostic (ICD-10-PCS; 2023-04-18)
PROC: 0DBM8ZX Excision of Descending Colon, Via Natural or Artificial Opening Endoscopic, Diagnostic (ICD-10-PCS; principal; 2023-04-18 08:00)
DX: Z12.11 Encounter for screening for malignant neoplasm of colon (principal); D12.3 Benign neoplasm of transverse colon; D12.4 Benign neoplasm of descending colon; K64.8 Other hemorrhoids; K57.30 Diverticulosis of large intestine without perforation or abscess without bleeding; Z86.010 Personal history of colon polyps; I10 Essential (primary) hypertension
CPT/HCPCS: 88305-TC

== ENCOUNTER 2023-04-25 03:59 | Day surgery (SDC) | payer OTHER, BC ==
[2023-04-24 08:26] VITALS: BMI 32.1
[2023-04-25 08:59] VITALS: BP 129/70; PULSE 56; RESP 16; TEMP 97.1
== END 2023-04-25 09:00 | disposition home or self-care (01) ==
LOC: JASU-ENDO 03:59
PROVIDERS: ATTEND Internal Medicine Gastroenterology
PROC: 0DB78ZX Excision of Stomach, Pylorus, Via Natural or Artificial Opening Endoscopic, Diagnostic (ICD-10-PCS; 2023-04-25)
PROC: 0DB68ZX Excision of Stomach, Via Natural or Artificial Opening Endoscopic, Diagnostic (ICD-10-PCS; principal; 2023-04-25 08:00)
DX: K29.50 Unspecified chronic gastritis without bleeding (principal); Z80.0 Family history of malignant neoplasm of digestive organs
CPT/HCPCS: 88305-TC; 88342-TC